=== PATIENT | male | born 1975 | race African-American/Black ===

== ENCOUNTER 2019-02-04 12:06 | Emergency (ER) | payer BC ==
--- NOTE | 2019-02-04 14:34 | ER ---
Nurse's Notes [facility] Name: Duane Gillis Age: 43 yrs Sex: Male : 1975 Arrival Date: 02/04/2019 Time: 12:13 Bed 9 Private MD: Diagnosis: Low back pain;Pain in knee Presentation: 02/04 12:36 Presenting complaint: Patient states: my LEFT knee and the middle of back hurts all the tw2 way across it hurts, its been a while now, i had the problem before, L4/5, i have an appt but its not until the , they gave me tramadol but its like taking some ibuprofen, i need some hydrocodone or something until i get to the doctor. Transition of care: patient was not received from another setting of care. Onset of symptoms was February 04, 2019. Risk Assessment: Do you want to hurt yourself or someone else? Patient reports no desire to harm self or others. Initial Sepsis Screen: Does the patient meet any 2 criteria? No. Patient's initial sepsis screen is negative. Does the patient have a suspected source of infection? No. Patient's initial sepsis screen is negative. Care prior to arrival: None. 12:36 Method Of Arrival: Ambulatory tw2 12:36 Acuity: ANNA 4 tw2 Triage Assessment: 12:38 General: Appears in no apparent distress. obese, Behavior is calm, cooperative, tw2 appropriate for age. Pain: Complains of pain in left knee and low back. Musculoskeletal: Range of motion: intact in all extremities. Historical: - Allergies: 12:39 No Known Allergies; tw2 - Home Meds: 12:39 tramadol 50 mg Oral tab 1 tab every 4 hours for Pain [Active]; tw2 - PMHx: 12:39 None; tw2 - PSHx: 12:39 None; tw2 - Immunization history:: Adult Immunizations. - Social history:: Smoking status: . - Ebola Screening: : Patient denies travel to an Ebola-affected area in the 21 days before illness onset. Screenin:39 Abuse screen: Denies threats or abuse. Nutritional screening: No deficits noted. tw2 Tuberculosis screening: No symptoms or risk factors identified. Fall Risk None identified. Assessment: 13:33 General: Appears in no apparent distress. Behavior is calm, cooperative. Pain: iw Complains of pain in left low back and right low back Pain radiates to left knee Pain currently is 8 out of 10 on a pain scale. Neuro: Level of Consciousness is awake, alert, obeys commands, Moves all extremities. Cardiovascular: Patient's skin is warm and dry. Respiratory: Respiratory effort is even, unlabored. Derm: Skin is intact, is healthy with good turgor. Musculoskeletal: Range of motion: intact in all extremities, Reports pain in back and left knee. Vital Signs: 12:38 BP 145 / 83; Pulse 87; Resp 17; Temp 98.7(TE); Pulse Ox 99% on R/A; Weight 144.24 kg tw2 (R); Height 5 ft. 10 in. (177.80 cm) (R); Pain 8/10; 12:38 Body Mass Index 45.63 (144.24 kg, 177.80 cm) tw2 ED Course: 12:13 Patient arrived in ED. mr 12:38 Triage completed. tw2 12:38 Arm band placed on. tw2 13:33 Ines Hagen, RN is Primary Nurse. iw 13:34 Patient has correct armband on for positive identification. iw 14:00 Mariela Phillips FNP-C is PHCP. snw 14:00 German Lora MD is Attending Physician. snw 15:09 No provider procedures requiring assistance completed. Patient did not have IV access iw during this emergency room visit. Administered Medications: 14:44 Drug: TORadol 30 mg Route: IM; Site: left deltoid; iw Outcome: 14:33 Discharge ordered by . snw 15:09 Discharged to home ambulatory. iw 15:09 Condition: good 15:09 Discharge instructions given to patient, Instructed on discharge instructions, follow up and referral plans. medication usage, Demonstrated understanding of instructions, follow-up care, medications, Prescriptions given X 2. 15:10 Patient left the ED. iw Signatures: Mariela Phillips FNP-C MACHINE SEWER-Csnw Feli Everett mr Ines Hagen, RN RN iw Ora Sharma RN RN tw2
--- NOTE | 2019-02-04 14:34 | EDPHYS ---
Physician Documentation [facility] Name: Duane Gillis Age: 43 yrs Sex: Male : 1975 Arrival Date: 02/04/2019 Time: 12:13 Bed 9 Private MD: ED Physician German Lora HPI: 02/04 15:54 This 43 yrs old Black Male presents to ER via Ambulatory with complaints of Back Pain, snw Knee Pain. 15:54 The patient presents with pain that is chronic, with no known mechanism of injury, and snw decreased range of motion. The symptoms are located in the lumbar area, knee bilateral. Associated signs and symptoms: The patient has no apparent associated signs or symptoms. Historical: - Allergies: 12:39 No Known Allergies; tw2 - Home Meds: 12:39 tramadol 50 mg Oral tab 1 tab every 4 hours for Pain [Active]; tw2 - PMHx: 12:39 None; tw2 - PSHx: 12:39 None; tw2 - Immunization history:: Adult Immunizations. - Social history:: Smoking status: . - Ebola Screening: : Patient denies travel to an Ebola-affected area in the 21 days before illness onset. ROS: 15:50 Constitutional: Negative for fever, chills, and weight loss, Eyes: Negative for injury, snw pain, redness, and discharge, ENT: Negative for injury, pain, and discharge, Neck: Negative for injury, pain, and swelling, Cardiovascular: Negative for chest pain, palpitations, and edema, Respiratory: Negative for shortness of breath, cough, wheezing, and pleuritic chest pain, Abdomen/GI: Negative for abdominal pain, nausea, vomiting, diarrhea, and constipation, : Negative for injury, bleeding, discharge, and swelling, Skin: Negative for injury, rash, and discoloration, Neuro: Negative for headache, weakness, numbness, tingling, and seizure. 15:50 Back: Positive for pain at rest, pain with movement. 15:50 MS/extremity: Positive for of the left knee and back. Exam: 15:50 Constitutional: This is a well developed, obese patient who is awake, alert, and in no snw acute distress. Head/Face: Normocephalic, atraumatic. Eyes: Pupils equal round and reactive to light, extra-ocular motions intact. Lids and lashes normal. Conjunctiva and sclera are non-icteric and not injected. Cornea within normal limits. Periorbital areas with no swelling, redness, or edema. ENT: Nares patent. No nasal discharge, no septal abnormalities noted. Tympanic membranes are normal and external auditory canals are clear. Oropharynx with no redness, swelling, or masses, exudates, or evidence of obstruction, uvula midline. Mucous membranes moist. Neck: Trachea midline, no thyromegaly or masses palpated, and no cervical lymphadenopathy. Supple, full range of motion without nuchal rigidity, or vertebral point tenderness. No Meningismus. Chest/axilla: Normal chest wall appearance and motion. Nontender with no deformity. No lesions are appreciated. Cardiovascular: Regular rate and rhythm with a normal S1 and S2. No gallops, murmurs, or rubs. Normal PMI, no JVD. No pulse deficits. Respiratory: Lungs have equal breath sounds bilaterally, clear to auscultation and percussion. No rales, rhonchi or wheezes noted. No increased work of breathing, no retractions or nasal flaring. Abdomen/GI: Soft, non-tender, with normal bowel sounds. No distension or tympany. No guarding or rebound. No evidence of tenderness throughout. Back: No spinal tenderness. No costovertebral tenderness. Full range of motion. Skin: Warm, dry with normal turgor. Normal color with no rashes, no lesions, and no evidence of cellulitis. MS/ Extremity: Pulses equal, no cyanosis. Neurovascular intact. Full, normal range of motion. Neuro: Awake and alert, GCS 15, oriented to person, place, time, and situation. Cranial nerves II-XII grossly intact. Motor strength 5/5 in all extremities. Sensory grossly intact. Cerebellar exam normal. Normal gait. Psych: Awake, alert, with orientation to person, place and time. Behavior, mood, and affect are within normal limits. 15:53 Neuro: Orientation: is normal, Gait: is steady. snw Vital Signs: 12:38 BP 145 / 83; Pulse 87; Resp 17; Temp 98.7(TE); Pulse Ox 99% on R/A; Weight 144.24 kg tw2 (R); Height 5 ft. 10 in. (177.80 cm) (R); Pain 8/10; 12:38 Body Mass Index 45.63 (144.24 kg, 177.80 cm) tw2 MDM: 14:03 Patient medically screened. snw 15:51 Data reviewed: vital signs, nurses notes. Data interpreted: Pulse oximetry: on room air snw is 99 %. Interpretation: normal. Counseling: I had a detailed discussion with the patient and/or guardian regarding: the historical points, exam findings, and any diagnostic results supporting the discharge/admit diagnosis, the presence of at least one elevated blood pressure reading (>120/80) during this emergency department visit, the need for outpatient follow up, to return to the emergency department if symptoms worsen or persist or if there are any questions or concerns that arise at home. Special discussion: Based on the history and exam findings, there is no indication for further emergent testing or inpatient evaluation. I discussed with the patient/guardian the need to see the primary care provider for further evaluation of the symptoms. Administered Medications: 14:44 Drug: TORadol 30 mg Route: IM; Site: left deltoid; iw Disposition: 02/05 07:40 Co-signature as Attending Physician, German Lora MD I agree with the assessment and sandra plan of care. Disposition: 02/04/19 14:33 Discharged to Home. Impression: Low back pain, Pain in knee. - Condition is Stable. - Discharge Instructions: Back Pain, Adult, Musculoskeletal Pain, Knee Pain, Back Exercises, Vuyf-up-Cuad, Cryotherapy, Rehydration, Adult, Heat Therapy. - Prescriptions for Diclofenac Sodium 75 mg Oral Tablet Sustained Release - take 1 tablet by ORAL route 2 times per day; 30 tablet. orphenadrine citrate 100 mg Oral Tablet Sustained Release - take 1 tablet by ORAL route 2 times per day As needed; 20 tablet. - Medication Reconciliation Form, Thank You Letter, Antibiotic Education, Prescription Opioid Use form. - Follow up: Private Physician; When: 2 - 3 days; Reason: Recheck today's complaints, Continuance of care, Re-evaluation by your physician. Follow up: Emergency Department; When: As needed; Reason: Worsening of condition. Signatures: German Lora MD MD cha Therrien, Shelly, TALENT ASSOCIATE-C TALENT ASSOCIATE-Csnw Ines Hagen RN RN iw Ora Sharma RN RN tw2 Corrections: (The following items were deleted from the chart) 02/04 15:10 14:33 02/04/2019 14:33 Discharged to Home. Impression: Low back pain; Pain in knee. iw Condition is Stable. Forms are Medication Reconciliation Form, Thank You Letter, Antibiotic Education, Prescription Opioid Use. Follow up: Private Physician; When: 2 - 3 days; Reason: Recheck today's complaints, Continuance of care, Re-evaluation by your physician. Follow up: Emergency Department; When: As needed; Reason: Worsening of condition. snw
[2019-02-04] MEDS ORDERED: KETOROLAC 30 MG/ML INJ ONE (14:56)
== END 2019-02-04 15:10 | disposition home or self-care (01) ==
LOC: ER 12:06
DX: M25.562 Pain in left knee (principal)
CPT/HCPCS: 96372; 99283